=== PATIENT | female | born 1965 | race Caucasian/White ===

== ENCOUNTER 2020-04-02 17:05 | Emergency (ER) | payer MEDICAID ==
[~2020-04-02] VITALS: Ht 154.9 cm; Wt 72.6 kg
--- NOTE | 2020-04-02 17:30 | NUR ---
Patient to ER bed 3 to gown for evaluation. Side rails up. Report given to Aylin SALMON.
[2020-04-02 17:41] VITALS: BP_SYST 147
--- NOTE | 2020-04-02 17:41 | NUR ---
ASSUMED CARE OF PT. PT BIB SISTER FOR ABDOMINAL PAIN 02/02 SINCE SUNDAY. PT REPORTS PAIN INTERMITTENT. NAUSEA SINCE SUNDAY LAST VOMITED 5 DAYS AGO.
[2020-04-02] MEDS ORDERED: ONDANSETRON 4 MG ODT TAB PO ONE (18:45)
--- NOTE | 2020-04-02 19:45 | NUR ---
ENDORSED CARE TO EVANGELINA SALMON.
--- NOTE | 2020-04-02 19:49 | NUR ---
HALLIE TO ASSUME CARE. PT CALM, ALERT, STEADY GAIT. RESP UNLABORED, SKIN WARM AND DRY. COMMUNICATES CLEARLY IN FULL COMPLETE SENTENCES.
[2020-04-02 20:38] LABS: BASOPHILS % (AUTO) 0.3 % (0.0-2.0); EOSINOPHILS # (AUTO) 0.1 K/uL (0.0-0.4); EOSINOPHILS % (AUTO) 1.3 % (0.0-4.0); HEMATOCRIT 40.5 % (36-48); HEMOGLOBIN 13.5 g/dL (12.0-16.0); LYMPHOCYTES # (AUTO) 2.1 K/uL (1.0-5.5); LYMPHOCYTES % (AUTO) 20.5 % (20.5-51.5); MEAN CORPUSCULAR HEMOGLOBIN 28 pg (27-31); MEAN CORPUSCULAR HGB CONC 33 % (32-36); MEAN CORPUSCULAR VOLUME 84 fL (79.0-98.0); MONOCYTES # (AUTO) 0.8 K/uL (0.0-1.0); MONOCYTES % (AUTO) 8.1 % (1.7-9.3); NEUTROPHILS # (AUTO) 7.2 K/uL (1.8-7.7); NEUTROPHILS % (AUTO) 69.8 % (40.0-70.0); PLATELET COUNT (AUTO) 267 K/uL (130-430); RED BLOOD CELL COUNT(AUTO) 4.83 MIL/uL (4.2-6.2); RED CELL DISTRIBUTION WIDTH 13.3 % (9.0-15.0); WHITE BLOOD COUNT (AUTO) 10.3 K/uL (4.8-10.8)
[2020-04-02 20:43] LABS: CALCIUM 8.9 mg/dL (8.4-11.0); CREATININE 0.96 mg/dL (0.55-1.30); POTASSIUM 3.7 mmol/L (3.5-5.1)
[2020-04-02 20:48] LABS: ALBUMIN 3.5 g/dL (3.4-4.8); TOTAL BILIRUBIN 0.3 mg/dL (0.0-1.0)
--- NOTE | 2020-04-02 21:28 | NUR ---
2005 DR RICKS IN TO ASSESS. PT CALM AND ALERT
--- NOTE | 2020-04-02 21:31 | NUR ---
Patient given written and verbal discharge instructions and verbalizes understanding. ER MD discussed with patient the results and treatment provided. Patient in stable condition. ID arm band removed. Rx of BENTYL given. Patient educated on pain management and to follow up with PMD. Pain Scale 0/10. Opportunity for questions provided and answered. Medication side effect fact sheet provided.
[2020-04-02 21:33] VITALS: BP_SYST 147
== END 2020-04-02 21:33 | disposition home or self-care (01) ==
LOC: SED 17:05
DX: R10.12 Left upper quadrant pain (principal)
CPT/HCPCS: 36415; 80053; 83690-TC; 85025; 99283